=== PATIENT | female | born 2000 | race Caucasian/White ===

== ENCOUNTER 2020-07-10 17:34 | Emergency (ER) | payer OTHER, SELFPAY ==
[2020-07-10 17:44] VITALS: BP 110/63; PULSE 117; RESP 12; TEMP 37.1; O2SAT 99
--- NOTE | 2020-07-10 18:21 | ED.SKABFB ---
HPI - Skin/Abscess/Foreign Bdy General Chief complaint: Skin/Abscess/Foreign Body Stated complaint: abscess Time Seen by Provider: 07/10/20 17:55 Source: patient and RN notes reviewed Mode of arrival: ambulatory Limitations: no limitations History of Present Illness HPI narrative: Patient presents today with a boil to her left buttock x2 days that has been worsening since onset. She has been applying hot compresses. Currently rates her pain 4/10, which increases with walking. She has been taking ibuprofen with relief. History of 1 boil approximately 10 years ago. Denies any history of staph infections or MRSA. No history of I&D. MD complaint: abscess/boil Related Data Home Medications Medication Instructions Recorded Confirmed bupropion HCl 300 mg PO QAM 07/10/20 07/10/20 bupropion HCl mg PO 07/10/20 lisdexamfetamine [Vyvanse] 70 mg PO DAILY 07/10/20 07/10/20 paroxetine HCl [Paxil] 20 mg PO QAM 07/10/20 07/10/20 topiramate 100 mg PO BID 07/10/20 07/10/20 Allergies Allergy/AdvReac Type Severity Reaction Status Date / Time shrimp Allergy Unknown Verified 07/10/20 18:42 Review of Systems Review of Systems: Narrative: CONSTITUTIONAL: Denies body aches, fever, chills, or sweats. EYES: Denies visual changes, redness, or discharge. ENT: Denies rhinorrhea, congestion, sore throat, or otalgia. CARDIOVASCULAR: Denies chest pain, palpitations, or edema. RESPIRATORY: Denies cough or dyspnea. GASTROINTESTINAL: Denies abdominal pain, nausea, vomiting, or diarrhea. GENITOURINARY: Denies dysuria or hematuria. SKIN: Denies rash, itching, or wounds.+ Boil to left buttock MUSCULOSKELETAL: Denies back pain, joint pain, or myalgia. NEUROLOGIC: Denies headache, numbness, tingling, or weakness. PSYCH: Denies depression or anxiety. PMFSH Comments At time of signature, I have reviewed and agree with nursing past medical, surgical, social and family history unless otherwise noted. Please see nursing chart for further information. There is no relevant family history pertinent to the presenting complaint Exam Narrative: Exam Narrative: GENERAL: Well-appearing, well-nourished, and in no acute distress. HEAD: Normocephalic, atraumatic. EYES: EOMI. No redness or drainage. Conjunctivae normal. ENT: Mucous membranes pink and moist. NECK: Normal AROM. CHEST: No respiratory distress. EXTREMITIES: Normal range of motion. No edema. SKIN: Warm, dry, no rash. Capillary refill normal. Normal skin turgor. 12 x 6 cm area of erythema to the left buttock with 2 x 1.5 cm darkened area of fluctuance to the center. Area is tender to palpation. NEURO: No focal deficits. Alert and oriented x3. Gait steady. PSYCH: Normal affect. No signs of depression or anxiety. Course Vital Signs Vital signs: Vital Signs Temperature 98.7 F 07/10/20 17:44 Pulse Rate 117 H 07/10/20 17:44 Respiratory Rate 12 07/10/20 17:44 Blood Pressure 110/63 07/10/20 17:44 Pulse Oximetry 99 07/10/20 17:44 Temperature 98.7 F 07/10/20 17:44 Pulse Rate 117 H 07/10/20 17:44 Respiratory Rate 12 07/10/20 17:44 Blood Pressure 110/63 07/10/20 17:44 Pulse Oximetry 99 07/10/20 17:44 Reviewed Procedures Abscess I/D other: Date of Incision: 07/10/20 Time of Incision: 18:00 Side (if applicable): left Local Anesthetic: lidocaine 1% Amount of anesthesia used (mL): 3 Technique: incised with #11 blade Irrigation: No Packing used?: plain (7cm) I&D Results: Pus and Blood Abcess I&D Additional Comments: Area was cleansed with [employer]. Dressed with large bandaid. MDM - Skin/Abscess/Foreign Bdy Differential Diagnosis Differential diagnosis: Likely abscess of skin or subcutaneous tissue and cellulitis Critical Care Time Critical Care Time Critical Care Time: No Discharge Plan Discharge Clinical Impression: Abscess of skin or subcutaneous tissue Qualifiers: Site of cutaneous
== END 2020-07-10 18:30 | disposition home or self-care (01) ==
PROVIDERS: Emergency Provider Nurse Practitioner
DX: L02.31 Cutaneous abscess of buttock (principal); F41.9 Anxiety disorder, unspecified; F32.9 Major depressive disorder, single episode, unspecified
CPT/HCPCS: 10061; 99213; G0463